=== PATIENT | female | born 1935 | race African-American/Black ===

== ENCOUNTER 2016-11-19 17:19 | Inpatient (IN) | payer OTHER ==
[~2016-11-19] VITALS: Ht 152.4 cm; Wt 51.6 kg
--- NOTE | ~2016-11-19 | EKG ---
[address] [place] [address] ELECTROCARDIOGRAM REPORT Name: KOFFI ELENA Room #: 429-P ADM IN M.R.#: [id number] Admission: 11/19/16 Attend Phys: David Orosco DO Discharge: Date of : 35 Report #: [id number] THIS REPORT FOR: //name// [facility] ED Test Date: 2016-11-19 Test Time: 17:40:29 Pat Name: KOFFI ELENA Department: Room: 429 Gender: F Holistic Nutritionist: [id number] : 1935 Requested By: Lela Fuentes Order Number: [id number] MD: Srini Yip Measurements Intervals Ramona Rate: 71 P: 30 DE: 180 QRS: 3 QRSD: 99 T: 42 QT: 394 QTc: 429 Interpretive Statements Sinus rhythm Abnormal R-wave progression, early transition Left ventricular hypertrophy Baseline wander in lead(s) V1 Compared to ECG 03/24/2016 10:06:45 No significant change was found Electronically Signed On 11-20-2016 8:25:05 CDT by Srini Yip [email or web address] <ELECTRONICALLY SIGNED> By: Srini Yip MD, [facility] 11/20/16 0825 1740 1740 Srini Yip MD, [facility] /EPI
[~2016-11-19 17:19] MED LIST: ALEVE220 MG PO; AMLODIPINE BESY10 MG PO; ATENOLOL 25MG T25 M1 PO; BISACODYL SUPP10 MG RECTAL; CENTRUM SILVER1 EAC4 PO; CIPRO250 M1 PO; COLACE100 MG PO; FISH OIL 1,001000 M2 PO; LEXAPRO 10 MG T10 M1 PO; MILK OF MA2400 MG/10 PO; NAMENDA 10 MG T10 MG PO; NAMENDA XR28 MG PO; NORVASC10 MG PO; PAROXETINE HCL20 MG PO; PRAVACHOL40 MG PO; TENORMIN25 MG PO; TYLENOL325 MG PO; UNICOMPLEX M TA1 TA1 PO
[2016-11-19 17:42] LABS: URINE BILIRUBIN NEGATIVE (Negative); URINE BLOOD TRACE (Negative); URINE COLOR YELLOW; URINE GLUCOSE-RANDOM* NEGATIVE (Negative); URINE KETONES NEGATIVE (Negative); URINE NITRITE POSITIVE (Negative); URINE PROTEIN (DIPSTICK) 1+ (Negative); URINE SPECIFIC GRAVITY 1.015 (1.003-1.035); URINE UROBILINOGEN 0.2 E.U./dl (0.2-1.0)
[2016-11-19 17:55] LABS: BACTERIA >30 Many /HPF (None Seen); CASTS None Seen /LPF (None Seen); CRYSTALS None Seen /LPF (None Seen); SQUAMOUS 0-3 Few /LPF (0-3); URINE RBC 0-2 Rare /HPF (0-2); URINE WBC 6-15 Few /HPF (0-5)
[2016-11-19 18:11] LABS: ABSOLUTE NEUTROPHILS 5.6 thou/uL (1.4-8.2); BASOPHILS 0.5 % (0.0-2.0); EOSINOPHILS 1.4 % (0.0-3.0); HEMATOCRIT 38.3 % (37.0-47.0); HEMOGLOBIN 12.7 gm/dL (12.0-15.0); LYMPHOCYTES 12.9 % (24.0-44.0); MCH 26.8 pg (26.0-34.0); MCV 81.1 fL (80.0-100.0); MONOCYTES 8.8 % (1.0-8.0); PLATELET COUNT 241 thou/uL (150-400); POLYS 76.4 % (36.0-66.0); RBC 4.72 mil/uL (4.20-5.00); RDW 14.2 % (10.5-14.5); WBC 7.4 thou/uL (4.0-11.0)
[2016-11-19 18:12] LABS: MANUAL DIFF NO
[2016-11-19 18:21] LABS: ANION GAP 8 mmol/L (7-16); BUN 11 mg/dL (7-18); CALCIUM 9.2 mg/dL (8.5-10.1); CHLORIDE 101 mmol/L (98-107); CO2 27 mmol/L (21-32); CREATININE 0.9 mg/dL (0.6-1.0); GLUCOSE 88 mg/dL (74-106); POTASSIUM 3.9 mmol/L (3.5-5.1); SODIUM 136 mmol/L (136-145)
[2016-11-19 18:28] LABS: ALBUMIN 3.5 g/dL (3.4-5.0); ALKALINE PHOSPHATASE 78 U/L (46-116); SGOT 21 U/L (15-37); SGPT 16 U/L (30-65); TOTAL BILIRUBIN 0.7 mg/dL (<0.1-1.0); TROPONIN-I < 0.04 ng/mL (<0.04-0.07)
[2016-11-19 20:20] VITALS: BP 141/68
[2016-11-19] MEDS ORDERED: ESCITALOPRAM OX10 MG PO (20:23)
[2016-11-19] MEDS ORDERED: ATENOLOL 25 MG25 M1 PO (20:23)
[2016-11-19 20:40] VITALS: BP 121/81
[2016-11-20 03:10] VITALS: BP 110/86
[2016-11-20 05:00] VITALS: BP 135/77
[2016-11-20 09:08] VITALS: BP 90/70
[2016-11-20 15:23] VITALS: BP 148/62
[2016-11-20 20:32] VITALS: BP 121/71
[2016-11-21 03:34] VITALS: BP 138/76
[2016-11-21 04:22] LABS: ABSOLUTE NEUTROPHILS 3.2 thou/uL (1.4-8.2); CALCIUM 8.6 mg/dL (8.5-10.1); CREATININE 0.8 mg/dL (0.6-1.0); EOSINOPHILS 4.1 % (0.0-3.0); HEMATOCRIT 38.2 % (37.0-47.0); HEMOGLOBIN 12.3 gm/dL (12.0-15.0); LYMPHOCYTES 28.1 % (24.0-44.0); MCH 26.2 pg (26.0-34.0); MCHC 32.1 g/dL (28.0-37.0); MCV 81.6 fL (80.0-100.0); MONOCYTES 11.1 % (1.0-8.0); PLATELET COUNT 242 thou/uL (150-400); POLYS 55.7 % (36.0-66.0); POTASSIUM 4.1 mmol/L (3.5-5.1); RBC 4.69 mil/uL (4.20-5.00); RDW 14.3 % (10.5-14.5); WBC 5.8 thou/uL (4.0-11.0)
[2016-11-21 04:23] LABS: MANUAL DIFF NO
[2016-11-21 08:12] VITALS: BP 154/69
[2016-11-21 16:02] VITALS: BP 119/61
[2016-11-21 20:52] VITALS: BP 127/68
[2016-11-22 03:27] VITALS: BP 125/65
[2016-11-22 04:24] LABS: BASOPHILS 0.5 % (0.0-2.0); EOSINOPHILS 4.4 % (0.0-3.0); HEMATOCRIT 38.3 % (37.0-47.0); HEMOGLOBIN 12.5 gm/dL (12.0-15.0); MCH 26.4 pg (26.0-34.0); MCHC 32.8 g/dL (28.0-37.0); MCV 80.5 fL (80.0-100.0); MONOCYTES 8.6 % (1.0-8.0); PLATELET COUNT 248 thou/uL (150-400); POLYS 58.5 % (36.0-66.0); RBC 4.76 mil/uL (4.20-5.00); RDW 14.1 % (10.5-14.5); WBC 5.1 thou/uL (4.0-11.0)
[2016-11-22 04:26] LABS: MANUAL DIFF NO
[2016-11-22 04:30] LABS: CALCIUM 8.9 mg/dL (8.5-10.1); CREATININE 0.8 mg/dL (0.6-1.0); POTASSIUM 3.6 mmol/L (3.5-5.1)
[2016-11-22 16:05] VITALS: BP 142/84
[2016-11-22 19:55] VITALS: BP 133/65
[2016-11-23 04:12] VITALS: BP 147/84
[2016-11-23 08:30] VITALS: BP 138/76
[2016-11-23] MEDS ORDERED: CEFUROXIME250 MG PO (09:55)
== END 2016-11-23 15:57 | DRG 689 ==
LOC: ER 17:19 → EROBS 18:50 → 4E 19:32
PROVIDERS: Family Medicine; Physician Assistant
DX: N39.0 Urinary tract infection, site not specified (principal); G93.40 Encephalopathy, unspecified; I10 Essential (primary) hypertension; G30.9 Alzheimer's disease, unspecified; F02.80 Dementia in other diseases classified elsewhere, unspecified severity, without behavioral disturbance, psychotic disturbance, mood disturbance, and anxiety; E78.00 Pure hypercholesterolemia, unspecified; M06.9 Rheumatoid arthritis, unspecified; R53.81 Other malaise; Z79.899 Other long term (current) drug therapy; Z88.1 Allergy status to other antibiotic agents; Z88.6 Allergy status to analgesic agent
CPT/HCPCS: 10084

== ENCOUNTER 2018-06-14 12:45 | Inpatient (IN) | payer OTHER ==
[~2018-06-14] VITALS: Ht 152.4 cm; Wt 42.6 kg
[~2018-06-14 12:45] MED LIST changes: +ATENOLOL 25 MG25 M1 PO; +CEFUROXIME250 MG PO; +ESCITALOPRAM OX10 MG PO
[2018-06-14 13:03] VITALS: BP 120/83
[2018-06-14 13:59] LABS: BASOPHILS 0.3 % (0.0-2.0); EOSINOPHILS 1.6 % (0.0-3.0); HEMATOCRIT 40.5 % (37.0-47.0); HEMOGLOBIN 13.2 gm/dL (12.0-15.0); LYMPHOCYTES 14.3 % (24.0-44.0); MCH 27.3 pg (26.0-34.0); MCHC 32.5 g/dL (28.0-37.0); MCV 83.9 fL (80.0-100.0); MONOCYTES 6.8 % (1.0-8.0); PLATELET COUNT 208 thou/uL (150-400); RBC 4.83 mil/uL (4.20-5.00); RDW 16.7 % (10.5-14.5); WBC 9.1 thou/uL (4.0-11.0)
[2018-06-14 14:02] LABS: CALCIUM 9.1 mg/dL (8.5-10.1); CREATININE 1.1 mg/dL (0.6-1.0)
[2018-06-14 14:06] LABS: URINE CLARITY CLEAR; URINE COLOR YELLOW
[2018-06-14 14:07] LABS: URINE BILIRUBIN NEGATIVE (Negative); URINE BLOOD NEGATIVE (Negative); URINE GLUCOSE-RANDOM* NEGATIVE (Negative); URINE KETONES NEGATIVE (Negative); URINE LEUKOCYTES-REFLEX NEGATIVE (Negative); URINE NITRITE-REFLEX NEGATIVE (Negative); URINE PROTEIN (DIPSTICK) NEGATIVE (Negative); URINE UROBILINOGEN 0.2 E.U./dl (0.2-1.0)
[2018-06-14 14:08] LABS: ALBUMIN 3.2 g/dL (3.4-5.0); TOTAL BILIRUBIN 0.4 mg/dL (<0.1-1.0); TOTAL PROTEIN 6.5 g/dL (6.4-8.2)
[2018-06-14 18:04] VITALS: BP 127/65
[2018-06-14 18:27] VITALS: BP 118/66
[2018-06-14 22:00] VITALS: BP 126/68
--- NOTE | 2018-06-15 04:56 | NUR ---
PT WAS ADMITTED TO THE UNIT BEFORE SHIFT CHANGE.ADMISSION ASSESSMENT COMPLETED WITH THE HELP OF FAMILY.PT REPOSITIONED WHILE IN BED.IVF INFUSING ORDERED.PO FLUIDS ENCOURAGED.PT SLEEPING ON HER BED AT THIS TIME.CALL LIGHT WITHIN REACH.
[2018-06-15 05:00] VITALS: BP 159/67
[2018-06-15 07:14] VITALS: BP 128/52
--- NOTE | 2018-06-15 09:45 | NUR ---
RECEIVED PT APPROX 0730. CONFUSED. NOT ANSWERING QUESTIONS. PT NOTED TO POCKET FOOD AND NOT FOLLOWING COMMAND. INCONTINENT. BATH GIVEN BY NURSE PRICER TODAY. REPOSITIONED. WILL CONT. TO MONITOR.
[2018-06-15] MEDS ORDERED: LOTRISONE CREAM15 GM TOP (09:54)
[2018-06-15] MEDS ORDERED: KETOCONAZOLE15 GM TOP (09:56)
[2018-06-15] MEDS ORDERED: VITAMIN D3400 UNIT PO (09:57)
[2018-06-15] MEDS ORDERED: LIPITOR 20 MG T20 M1 PO (09:57)
--- NOTE | 2018-06-15 15:14 | NUR ---
PT. RESIDES AT [facility]. FAXED CLINICAL UPDATE TO FACILITY SPOKE WITH YUNIER IN ADM. SHE RECEIVED UPDATE. DCP TO FOLLOW.
--- NOTE | 2018-06-15 15:49 | NUR ---
PT ADMITTED RELATED TO DEHYDRATION. CM REVIEWED CHART AND SPOKE WITH CARE TEAM. CM CALLED AND SPOKE WITH PT'S NIECE JOSELYN AND SHE INDICATED THAT PT IS A CORRECTION CARE RESIDENT AT [facility]. SHE INDICATED THAT PT HAD BEEN WALKING WITH ASSIST UP UNTIL THIS PAST WEEK. SHE INDICATED THAT PT HAD BEEN ABLE TO FEED HERSELF WELL. SHE INDICATED THAT SHE ANTICIPATES PT RETURNING TO [facility] ONCE MEDICALLY STABLE. CM TO FOLLOW INDICATED WITH DC PLANNING.
[2018-06-15 16:50] VITALS: BP 160/88
[2018-06-15 20:05] VITALS: BP 145/74
[2018-06-16 04:47] VITALS: BP 150/86
[2018-06-16 05:54] LABS: CALCIUM 8.3 mg/dL (8.5-10.1); CREATININE 0.7 mg/dL (0.6-1.0); POTASSIUM 3.3 mmol/L (3.5-5.1)
--- NOTE | 2018-06-16 09:03 | H ---
[facility] [place] [address] HISTORY AND PHYSICAL Name: KOFFI ELENA Room #: 432-P ADM IN M.R.#: [id number] Admission: 06/15/18 Attend Phys: Juan Dodson MD Discharge: Date of : 35 Report #: [id number] THIS REPORT FOR: //name// CC: Juan Smallwood DATE OF SERVICE: 06/14/2018 CHIEF COMPLAINT: Weakness. HISTORY OF PRESENT ILLNESS: The patient is an 82-year-old female from [facility], was brought to the Emergency Room with concerns of weakness and lethargy. The family states, at baseline, she is active and sits up in the wheelchair and is pleasantly forgetful, but generally interacts with them. However, they said for several days, they have noticed that she seemed weaker and more lethargic and has not been able to feed herself, which is her normal. In the past, family has reported about 2 years ago, she had a UTI and dehydration with very similar symptoms and was brought to the hospital. PAST MEDICAL HISTORY: Alzheimer disease, hypertension, dyslipidemia, rheumatoid arthritis. PAST SURGICAL HISTORY: Unknown. FAMILY HISTORY: Unknown. SOCIAL HISTORY: She has been living [facility] the detention for at least the last 3 years or longer. ALLERGIES: CLARITHROMYCIN, TRAMADOL. MEDICATIONS: Multivitamin, Pravachol, amlodipine, atenolol, Lexapro, Namenda. REVIEW OF SYSTEMS: She is unable to give review. OBJECTIVE: VITAL SIGNS: Temperature 36.3, pulse 83, respirations 16, blood pressure 128/52, O2 sat 94% on room air. GENERAL: She is awake, sitting up in bed, in no distress. HEAD AND NECK: Unremarkable. LUNGS: Clear. HEART: Regular. ABDOMEN: Soft, normoactive bowel sounds, no rebound or guarding. EXTREMITIES: No cyanosis, clubbing or edema. NEUROLOGIC: She seems to move all extremities equally. She was just mumbling words and I really could not get her to communicate clearly. [address] [address] HISTORY AND PHYSICAL Name: KOFFI ELENA Room #: [facility] IN M.R.#: [id number] Admission: 06/15/18 Attend Phys: Juan Dodson MD Discharge: Date of : 35 Report #: [id number] LABORATORY DATA REVIEW: White count is normal. Sodium was 157, BUN 32, creatinine 1.1, albumin 3.2. ASSESSMENT: 1. Hypernatremia. 2. Prerenal azotemia. 3. Alzheimer disease. PLAN: I will ask for x-rays to rule out any other infection or basic abdominal issue. IV fluids have been adjusted. She has a do-not resuscitate status from the detention, which we will continue. I will hold her oral medications for now and Speech Therapy to assess her swallow capabilities. <ELECTRONICALLY SIGNED> By: Juan Dodson MD 06/16/18 0903 D: [id number] MD roxie Meraz
[2018-06-16 11:52] VITALS: BP 132/60
--- NOTE | 2018-06-16 12:33 | NUR ---
FAXED REFERRAL TO [facility]. SPOKE WITH DONI CARROLL SHE RECEIVED REFERRAL AND CAN ACCEPT PT. AT DISCHARGE. DCP TO FOLLOW.
[2018-06-16] MEDS ORDERED: ACETAMINOPHEN325 M1 PO (12:38)
--- NOTE | 2018-06-16 12:38 | NUR ---
PT'S NIECE JOSELYN CALLED AND INDICATED THAT THEY WANTED FOR PT TO GO TO ANOTHER FACILITY. SHE INDICATED SHE HAD SPOKEN WITH [facility] AND THEY WANT A REFERRAL SENT THERE. DC COLLEGE AND CAREER COUNSELOR SENT REFERRAL. WE WERE NOTIFIED THEY CAN ACCEPT PT FOR ADMISSION. PHYSICIAN INDICATED PT IS MEDICALLY STABLE TO DC THERE TODAY. CM TO REACH OUT TO FACILITY AND FAMILY TO ARRANGE DISCHARGE. CM TO FOLLOW INDICATED WITH DC PLANNING.
--- NOTE | 2018-06-16 15:10 | NUR ---
CARE TEAM INDICATED THAT PT IS MEDICALLY STABLE TO DC TO [facility] THIS DAY. PT HAD SECOND DEBRIDEMENT TODAY AND DIALYSIS. CM SPOKE WITH PT AND SPOUE AND BOTH ARE ARE AWARE AND AGREEABLE WITH GOING TO [facility]. CM COMPLETED [facility] FORM LOOKING TO ARRANGE TRANSPORT FOR 1829. ORDERS ARE TO BE FAXED. REPORT TO BE CALLED TO . NO OTHER CM INTERVETNION INDICATED AT THIS TIME. CASE CLOSED.
--- NOTE | 2018-06-16 15:13 | NUR ---
CM SPOKE WITH PT'S NIECE JOSELYN THIS AFTERNOON. SHE IS AGREEABLE WITH PT GOING TO [facility] THIS DAY. ORDERS ARE TO BE FAXED AND REPORT TO BE CALLED TO . NO OTHER CM INTERVENTION INDICATED AT THIS TIME. CASE CLOSED.
--- NOTE | 2018-06-16 16:10 | NUR ---
PT. DISCHARGING TODAY TO [facility] FAXED DC ORDERS/SUMMARY TO FACILITY SPOKE WITH DONI IN ADM. SHE RECEIVED ORDERS AND SET UP TRANSPORT [facility] FOR 1700 TODAY VIA [facility]. SW NOTIFIED FAMILY OF DISCHARGE. UNIT NOTIFIED OF TIME OF TRANSPORT AND CHART COPY PER US. RN TO CALL REPORT TO [phone].
--- NOTE | 2018-06-16 18:37 | NUR ---
PT DISCHARGED TO [facility] VIA TRANSPORT COMPANY PT ASSISTED TO [facility] ALL BELONGINGS PACKED AND SENT WITH PATIENT.
== END 2018-06-16 18:30 | DRG 641 ==
LOC: ER 12:45 → EROBS 16:33 → 4E 18:21
PROVIDERS: Emergency Medicine; ADMIT Internal Medicine Geriatric Medicine
DX: E87.0 Hyperosmolality and hypernatremia (principal); E86.0 Dehydration; G30.9 Alzheimer's disease, unspecified; F02.80 Dementia in other diseases classified elsewhere, unspecified severity, without behavioral disturbance, psychotic disturbance, mood disturbance, and anxiety; I10 Essential (primary) hypertension; E78.5 Hyperlipidemia, unspecified; R79.89 Other specified abnormal findings of blood chemistry; M06.9 Rheumatoid arthritis, unspecified; Z79.2 Long term (current) use of antibiotics; Z88.6 Allergy status to analgesic agent; Z79.899 Other long term (current) drug therapy; Z88.1 Allergy status to other antibiotic agents
CPT/HCPCS: 10084